=== PATIENT | male | born 1970 | race Hispanic/Latino ===

== ENCOUNTER 2023-05-03 07:08 | Emergency (ER) | payer SELFPAY ==
[2023-05-03] MEDS ORDERED: Morphine 4 MG/ML VIAL ONE (07:35)
[2023-05-03] MEDS ORDERED: Ondansetron PF 4 MG/2 ML Vial ONE (07:35)
[2023-05-03 08:05] LABS: #Basophils 0.1 10x3/uL (0.0-0.2); #Eosinphils 0.4 10x3/uL (0.0-0.5); #Monocytes 0.7 10x3/uL (0.0-1.1); #Neutrophils 3.2 10x3/uL (1.5-8.4); %Basophils 1.1 % (0.0-2.0); %Eosinophils 6.8 % (0.0-6.0); %Lymphocytes 30.4 % (18.0-47.0); %Monocytes 10.4 % (0.0-10.0); Hematocrit 44.5 % (38.8-50.0); Hemoglobin 15.7 g/dL (13.5-17.5); Mean Corpuscular HGB CONC 35.3 g/dL (32.0-36.0); Mean Corpuscular Hemoglobin 30.9 pg (27.0-33.0); Mean Corpuscular Volume 87.6 fl (81.2-95.1); Mean Platelet Volume 10.7 fl (7.4-10.4); Platelet Count 259 10x3/uL (150-450); Red Blood Cell (RBC) Count 5.08 10x6/uL (4.32-5.72); White Blood Cell (WBC) Count 6.4 10x3/uL (3.5-10.5)
[2023-05-03 08:29] LABS: ALT (SGPT) 54 U/L (8-55); AST (SGOT) 43 U/L (5-34); Albumin 4.5 g/dL (3.5-5.0); Alkaline Phosphatase 110 U/L (40-110); Anion Gap 16 mmol/L (10-20); BUN (Urea Nitrogen) 10 mg/dL (8.4-25.7); Bilirubin, Total 0.7 mg/dL (0.2-1.2); Calc. Creatinine Clearance 0 mL/min (70-130); Calcium 9.6 mg/dL (7.8-10.44); Carbon Dioxide 22 mmol/L (22-29); Chloride 103 mmol/L (98-107); Estimated GFR 105; Globulin 3.7 g/dL (2.4-3.5); Glucose 110 mg/dL (70-105); Lipase 47 U/L (8-78); Potassium 3.6 mmol/L (3.5-5.1); Protein, Total 8.2 g/dL (6.0-8.3); Sodium 137 mmol/L (136-145)
[2023-05-03] MEDS ORDERED: Dicyclomine 20 MG/2 ML VIAL ONE (08:58)
== END 2023-05-03 09:06 | disposition home or self-care (01) ==
LOC: CSHERS 07:08
DX: A08.4 Viral intestinal infection, unspecified (principal); E78.5 Hyperlipidemia, unspecified; I10 Essential (primary) hypertension
CPT/HCPCS: 74177; 80053; 83690; 85025; 93005; 96361; 96372; 96374; 96375; J2270; J2405